=== PATIENT | male | born 1935 | race Caucasian/White ===

== ENCOUNTER → 2017-02-19 | Outpatient (CLI) | payer MEDICARE ==
[~2017-02-19] MED LIST: CARDURA2 MG PO; COLACE100 MG PO; DESYREL50 MG PO; DILAUDID 4MG4 MG PO; ECOTRIN325 MG PO; FLEXERIL10 MG PO; GLUCOPHAGE500 MG PO; LEVOTHROID (S137 MCG PO; MAG-OX-400(241400 MG PO; NORVASC2.5 MG PO; PRAVACHOL20 MG PO; PRILOSEC20 MG PO; PRINIVIL OR ZES10 MG PO; TYLENOL EXTRA500 MG PO; TYLENOL325 MG PO; ULTRAM50 MG PO; VALIUM5 MG PO
== END | disposition disaster alternative care site (69) ==
LOC: GAMB 09:34
DX: R55 Syncope and collapse (principal); R42 Dizziness and giddiness; R11.2 Nausea with vomiting, unspecified; R29.6 Repeated falls; Z79.82 Long term (current) use of aspirin; Z79.899 Other long term (current) drug therapy; Z88.2 Allergy status to sulfonamides; W19.XXXA Unspecified fall, initial encounter
CPT/HCPCS: A0425; A0427